=== PATIENT | female | born 1955 | race African-American/Black ===

== ENCOUNTER 2016-06-10 06:23 | Emergency (ER) | payer OTHER, MEDICAID ==
[~2016-06-10] VITALS: Ht 160 cm; Wt 91.0 kg
[2016-06-10] MEDS ORDERED: ONDANSETRON HCL 4MG/2ML VIAL IV STA (06:52)
[2016-06-10] MEDS ORDERED: SODIUM CHLORIDE 0.9% 1,000 ML IV ONE (06:52)
[2016-06-10] MEDS ORDERED: PANTOPRAZOLE SODIUM 40 MG/VIAL IV STA (06:52)
[2016-06-10] MEDS ORDERED: MORPHINE SULFATE 4 MG/ML CPJ (NOT FOR IM USE) IV STA (06:52)
[2016-06-10 07:44] LABS: BASOPHILS % 0.7 % (0.0-2.0); EOSINOPHILS % 1.7 % (0.0-5.0); HEMATOCRIT. 38.1 % (36.0-48.0); HEMOGLOBIN. 12.7 g/dL (12.0-16.0); LYMPHOCYTES % 12.3 % (20.0-50.0); MEAN CORPUSCULAR HEMOGLOBIN 27.8 pg (28.0-32.0); MEAN CORPUSCULAR HGB CONC 33.3 g/dL (31.0-37.0); MEAN CORPUSCULAR VOLUME 83.6 fL (81.0-99.0); MEAN PLATELET VOLUME 9.2 fl (7.4-10.4); MONOCYTES % 6.4 % (2.0-8.0); NEUTROPHILS % 78.9 % (40.0-76.0); PLATELET 196 x1000/uL (130-400); RED BLOOD CELL COUNT 4.56 mill/uL (4.2-5.4); RED CELL DISTRIBUTION WIDTH 13.9 % (11.6-14.6); WHITE BLOOD COUNT 7.3 x1000/uL (4.5-11.0)
[2016-06-10 07:52] LABS: INR 1.1; PROTHROMBIN TIME 10.9 sec
[2016-06-10 07:57] LABS: ALANINE AMINOTRANSFERASE 90 IU/L (13-61); ALBUMIN 3.5 g/dL (3.4-5.0); ANION GAP 13; CALCIUM 9.1 mg/dL (8.5-10.1); CARBON DIOXIDE 31 mEq/L (21-32); CHLORIDE 103 mEq/L (98-107); INDEX HEMOLYSI 1 (1-3); INDEX ICTERIC 1 (1-4); INDEX LIPEMIC 1 (1-3); LIPASE 352 IU/L (73-393); TROPONIN I < 0.02 ng/mL (0.00-0.04); UREA NITROGEN BLOOD 8 mg/dL (7-21); eGFR > 60 mL/min (>60)
[2016-06-10] MEDS ORDERED: POTASSIUM CHLORIDE 20MEQ TABLET SR PO ONE (09:30)
[2016-06-10 09:42] VITALS: BP 128/86
[2016-06-10 10:30] LABS: MAGNESIUM 1.9 mg/dL (1.8-2.4)
== END 2016-06-10 10:46 | disposition home or self-care (01) ==
LOC: ER 06:24
DX: R10.13 Epigastric pain (principal); I10 Essential (primary) hypertension; E11.9 Type 2 diabetes mellitus without complications; F17.200 Nicotine dependence, unspecified, uncomplicated; Z85.72 Personal history of non-Hodgkin lymphomas; Z98.890 Other specified postprocedural states
CPT/HCPCS: 36415; 71010; 80053; 83690; 83735; 84484; 85025; 85610; 93005; 96361; 96374; 96375; 99285; C9113; J2270; J2405; J7030